=== PATIENT | female | born 1995 | race Caucasian/White ===

== ENCOUNTER 2024-06-08 08:48 | Inpatient (IN) | payer OTHER ==
[~2024-06-08 08:48] MED LIST: Bupivacaine/Epinephrine 0.25% 30 ML VIAL ONE
[2024-06-08] MEDS ORDERED: Methylergonovine 0.2 MG/ML VIAL IM PRN (08:53)
[2024-06-08] MEDS ORDERED: Ibuprofen 800 MG TAB PO PRN (08:53)
[2024-06-08] MEDS ORDERED: Docusate 100 MG CAP PO PRN (08:53)
[2024-06-08] MEDS ORDERED: Acetaminophen 500 MG TAB PO PRN (08:53)
[2024-06-08] MEDS ORDERED: HYDROcodone/Acetaminophen 5/325 mg Tablet PO PRN ×2 (08:53)
[2024-06-08] MEDS ORDERED: hydrALAZINE 20 MG/ML VIAL SLOW IVP PRN (08:53)
[2024-06-08] MEDS ORDERED: fentaNYL 50 mcg/mL 1 mL Vial SLOW IVP PRN (08:53)
[2024-06-08] MEDS ORDERED: Carboprost 250 MCG/ML AMP IM PRN (08:53)
[2024-06-08] MEDS ORDERED: Diphenoxylate HCl/Atropine Tablet PO PRN ×2 (08:53)
[2024-06-08] MEDS ORDERED: Promethazine HCl 25 MG/ML VIAL IM PRN ×2 (08:53→17:15)
[2024-06-08] MEDS ORDERED: Lidocaine 1% (PF) 30 ML VIAL SC PRN (08:53)
[2024-06-08] MEDS ORDERED: Misoprostol 200 MCG TAB PR PRN (08:53)
[2024-06-08] MEDS ORDERED: Ondansetron PF 4 MG/2 ML Vial IVP PRN (08:53)
[2024-06-08] MEDS ORDERED: Penicillin G Potassium 5 MILL.UNITS in Sodium Chloride 0.9% 100 ML IVPB SCH (09:00)
[2024-06-08] MEDS ORDERED: Lactated Ringer's 1,000 ML IV SCH (09:00)
[2024-06-08] MEDS: Penicillin G Potassium 5 MILL.UNITS VIAL ONE (09:44)
[2024-06-08 09:51] LABS: Hematocrit 33.4 % (34.9-44.5); Hemoglobin 11.2 g/dL (12.0-15.5); Mean Corpuscular HGB CONC 33.5 g/dL (32.0-36.0); Mean Corpuscular Hemoglobin 29.9 pg (27.0-33.0); Mean Corpuscular Volume 89.3 fL (81.6-98.3); Mean Platelet Volume 9.1 fL (7.4-10.4); Platelet Count 385 10x3/uL (150-450); RBC Distribution Width 16.8 % (11.5-14.5); Red Blood Cell (RBC) Count 3.74 10x6/uL (3.90-5.03); White Blood Cell (WBC) Count 7.4 10x3/uL (3.5-10.5)
[2024-06-08 10:20] LABS: HBsAg Index 0.16 S/CO (0-0.99); HIV (1/2) Antibody/Antigen Non-Reactive (NonReactive); HIV 1/2 INDEX 0.07 S/CO (<1.00); Hep B Surf Ag - L&D Non-Reactive S/CO (NonReactive)
[2024-06-08 10:21] LABS: Syphilis Antibody Nonreactive (Nonreactive); Syphilis Antibody Index 0.09 S/CO (<1.00 Non-Reactive)
[2024-06-08 12:05] VITALS: BMI 30.9
[2024-06-08] MEDS: fentaNYL/Ropivacaine Epidural 100 ML ONE (16:56)
[2024-06-08] MEDS: Oxytocin 30 units/NS 500 ML 500 ML IV SCH (16:59)
[2024-06-08] MEDS ORDERED: fentaNYL 2 mcg/Ropivacaine 0.2% Epidural 100 ML CADD EPIDURAL SCH (17:15)
[2024-06-08] MEDS ORDERED: Lactated Ringer's 500 ML IV PRN (17:15)
[2024-06-08] MEDS ORDERED: Communication Order-Pharmacy FS SCH (17:15)
[2024-06-08] MEDS ORDERED: Naloxone HCl 0.4 mg/ml Vial IVP PRN ×2 (17:15)
[2024-06-08] MEDS ORDERED: Acetaminophen 325 MG TAB PO PRN (17:15)
[2024-06-08] MEDS ORDERED: ePHEDrine Sulfate 50 MG/10 ML VIAL SLOW IVP PRN (17:15)
[2024-06-08] MEDS ORDERED: Moisturizing Cream (Eucerin) 113 GM JAR TOP PRN (17:15)
[2024-06-08] MEDS: Ondansetron PF 4 MG/2 ML Vial IVP PRN (17:56)
[2024-06-08] MEDS: Penicillin G 2.5 MILL.units 2.5 MILL.UNITS in Premix 1 BAG IVPB SCH (17:57)
[2024-06-08] MEDS: diphenhydrAMINE 50 MG/ML VIAL IVP PRN (19:51)
[2024-06-08] MEDS: Calcium Carbonate 500 MG ChewTAB PO SCH (21:48)
[2024-06-08] MEDS ORDERED: Dextrose 5%-Lactated Ringers 1,000 ML IV SCH (22:15)
[2024-06-08] MEDS: Acetaminophen 650 MG/20.3 ML UDCUP PO SCH (23:38)
[2024-06-09] MEDS ORDERED: Lanolin Ointment 7 GM TUBE TOP PRN (01:50)
[2024-06-09] MEDS ORDERED: Milk Of Magnesia 30 ML UDCUP PO PRN (01:50)
[2024-06-09] MEDS ORDERED: Zolpidem Tartrate 5 MG TAB PO PRN (01:50)
[2024-06-09] MEDS ORDERED: Misoprostol 200 MCG TAB VAG PRN (01:50)
[2024-06-09] MEDS ORDERED: Benzocaine-Menthol 82.5 ML CAN TOP PRN (01:50)
[2024-06-09] MEDS ORDERED: Bisacodyl 10 MG SUPP PR PRN (01:50)
[2024-06-09] MEDS ORDERED: Preparation H Ointment 28 GM TUBE PR PRN (01:50)
[2024-06-09] MEDS ORDERED: hydrALAZINE 20 MG/ML VIAL SLOW IVP PRN (01:50)
[2024-06-09] MEDS ORDERED: HYDROcodone/Acetaminophen 5/325 mg Tablet PO PRN ×2 (01:50)
[2024-06-09] MEDS ORDERED: Ondansetron PF 4 MG/2 ML Vial IVP PRN (01:50)
[2024-06-09] MEDS ORDERED: diphenhydrAMINE 25 MG CAP PO PRN (01:50)
[2024-06-09] MEDS ORDERED: Oxytocin 30 units/NS 500 ML 500 ML IV SCH (02:00)
[2024-06-09] MEDS: Ibuprofen 100 MG/5 ML UDCUP PO SCH (05:33)
[2024-06-09] MEDS: Acetaminophen 500 MG TAB PO SCH (05:43)
[2024-06-09] MEDS: Prenatal Vitamin 1 TAB PO SCH (08:15)
[2024-06-09] MEDS: Docusate 100 MG CAP PO SCH (08:15)
[2024-06-09] MEDS: Ferrous Sulfate 325 MG TAB PO SCH (08:16)
[2024-06-09] MEDS: Boostrix 0.5 ML (Tdap) VIAL (>/=7 yrs of age) IM ONE (21:35)
[2024-06-10 07:51] VITALS: BP 110/56; TEMP 97.8
== END 2024-06-10 14:55 | disposition home or self-care (01) | DRG 807 ==
LOC: CSHLD 08:48 → CSHPP 06-09 04:30
PROVIDERS: ADMIT Obstetrics & Gynecology; ATTEND Obstetrics & Gynecology
PROC: 10E0XZZ Delivery of Products of Conception, External Approach (ICD-10-PCS; principal; 2024-06-09)
PROC: 10907ZC Drainage of Amniotic Fluid, Therapeutic from Products of Conception, Via Natural or Artificial Opening (ICD-10-PCS; 2024-06-09)
DX: O99.824 Streptococcus B carrier state complicating childbirth (principal); Z37.0 Single live birth; O99.02 Anemia complicating childbirth; D64.9 Anemia, unspecified; Z3A.37 37 weeks gestation of pregnancy; O99.344 Other mental disorders complicating childbirth; F32.A Depression, unspecified; F41.9 Anxiety disorder, unspecified; Z79.899 Other long term (current) drug therapy
CPT/HCPCS: 36415; 51702; 85027; 86780; 86850; 86900; 86901; 87340; 87389; J1200; J2405; J2540; J2590